=== PATIENT | male | born 1985 | race Caucasian/White ===

== ENCOUNTER 2017-12-23 16:56 | Observation (INO) | payer BC ==
[2017-12-23] MEDS ORDERED: Dextrose 50% SYRINGE Inj (50 ml) ONE (17:05)
[2017-12-23] MEDS ORDERED: Sodium Chloride 0.9% 2,000 ML IV STA (17:55)
--- NOTE | 2017-12-23 17:58 | ED PDOC ---
HPI: General Adult Time Seen by Provider: 12/23/17 17:47 Chief Complaint (Nursing): Weakness/Neurological Deficit Chief Complaint (Provider): Muscle cramps History Per: Patient History/Exam Limitations: no limitations Onset/Duration Of Symptoms: Days (today 12pm) Current Symptoms Are (Timing): Still Present Additional Complaint(s): Pt. with cramps all over. Started 15 min after playing 2 soccer games, 1 hr each today. No chest pain, dyspnea, weakness, headaches, dizziness, abd pain, nausea, vomit, diarrhea. No cough. No numbness, tingles. Also was not wearing sunscreen so his skin but burned all over. Skin is not bothering him, but is red. Has had similar cramps when he was 16, after playing soccer; went away on its own. Past Medical History Reviewed: Nursing Documentation, Vital Signs Vital Signs: Last Vital Signs Temp 98 F 12/23/17 17:44 Pulse 105 H 12/23/17 17:44 Resp 20 12/23/17 17:44 BP 132/89 12/23/17 17:44 Pulse Ox 97 12/23/17 18:01 - Medical History PMH: No Chronic Diseases - Surgical History Surgical History: Back Surgery - Family History Family History: States: Unknown Family Hx - Home Medications Home Medications: Ambulatory Orders Medication Instructions Recorded No Known Home Med 12/23/17 - Allergies Allergies/Adverse Reactions: Allergies Allergy/AdvReac Type Severity Reaction Status Date / Time No Known Allergies Allergy Verified 12/23/17 17:44 Review of Systems ROS Statement: Except As Marked, All Systems Reviewed And Found Negative Constitutional: Positive for: Weakness Musculoskeletal: Positive for: Other (body cramps) Neurological: Positive for: Weakness Physical Exam - Reviewed Nursing Documentation Reviewed: Yes Vital Signs Reviewed: Yes - Physical Exam Appears: Positive for: Uncomfortable Head Exam: Positive for: ATRAUMATIC, NORMAL INSPECTION, NORMOCEPHALIC Skin: Positive for: Warm. Negative for: Normal Color (blanching, unraised erythema that is nontender on arms, legs, back, chest, abd; no fluctuance or induration.) Eye Exam: Positive for: EOMI, Normal appearance, PERRL ENT: Positive for: Normal ENT Inspection. Negative for: Nasal Congestion, Pharyngeal Erythema Neck: Positive for: Painless ROM, Supple Cardiovascular/Chest: Positive for: Regular Rate, Rhythm. Negative for: Tachycardia Respiratory: Positive for: CNT, Normal Breath Sounds Gastrointestinal/Abdominal: Positive for: Soft. Negative for: Tenderness Back: Negative for: L CVA Tenderness, R CVA Tenderness Extremity: Positive for: Normal ROM. Negative for: Tenderness, Pedal Edema, Calf Tenderness Neurologic/Psych: Positive for: Alert, beverage steward II-XII, Oriented. Negative for: Motor/Sensory Deficits, Facial Droop - Laboratory Results Result Diagrams: 12/23/17 18:07 12/23/17 18:07 Interpretation Of Abn Labs: 12.1 wbc, 22 bun. 2.4 cr, phos 5.6, cpk 957 - ECG ECG: Positive for: Interpreted By Me, Viewed By Me ECG Rhythm: Positive for: Normal QRS, Normal ST Segment, Sinus Rhythm O2 Sat by Pulse Oximetry: 97 Pulse Ox Interpretation: Normal - Progress ED Course And Treament: 1830: Stable. Continue hydration. Feeling less cramps. AAOx3. 1951: Spoke with Dr. Rowell. Will admit obs tele. Nephro paged. Feeling better. Will continue hydration. - Critical Care Total Time (In Min): 30 Documented Critical Care: Time excludes all time spent performint seperately billable procedures Disposition - Clinical Impression Clinical Impression: Acute renal insufficiency, Dehydration - Patient ED Disposition Is Patient to be Admitted: Yes Counseled Patient/Family Regarding: Studies Performed, Diagnosis - Disposition Disposition Time: 20:04 Condition: FAIR - Pt Status Changed To: Hospital Disposition Of: Observation - POA Present On Arrival: None
[2017-12-23 18:16] LABS: BASO # 0.1 K/uL (0.0-0.2); BASO % 0.6 % (0.0-2.0); EOS % 0.2 % (0.0-4.0); HEMOGLOBIN 16.5 g/dL (12.0-18.0); LYMPH # 1.6 K/uL (1.0-4.3); LYMPH % 13.5 % (20.0-40.0); MEAN CELL VOLUME 87.8 fl (80.0-94.0); MEAN CORPUSCULAR HEMOGLOBIN 30.6 pg (27.0-31.0); MEAN CORPUSCULAR HGB CONC 34.9 g/dL (33.0-37.0); MEAN PLATELET VOLUME 8.3 fl (7.2-11.7); MONO # 0.9 K/uL (0.0-0.8); MONO % 7.1 % (0.0-10.0); NEUT # 9.5 K/uL (1.8-7.0); NEUT % 78.6 % (50.0-75.0); RBC 5.39 Mil/uL (4.40-5.90); RED CELL DISTRIBUTION WIDTH 13.7 % (11.5-14.5); WHITE BLOOD COUNT 12.1 K/uL (4.8-10.8)
[2017-12-23 18:25] LABS: ALB/GLOB RATIO 1.3 (1.0-2.1); ALBUMIN 5.8 g/dL (3.5-5.0); CALCIUM 11.1 mg/dL (8.4-10.2)
[2017-12-23 18:36] LABS: TROPONIN I 0.039 ng/mL (0.00-0.120)
[2017-12-23] MEDS ORDERED: Sodium Chloride 0.9% 1,000 ML IV SCH (20:45)
[2017-12-23 20:50] LABS: URINE BACTERIA RARE (<OCC); URINE BILIRUBIN NEGATIVE (NEGATIVE); URINE BLOOD NEGATIVE (NEGATIVE); URINE CLARITY CLOUDY (Clear); URINE COLOR YELLOW (YELLOW); URINE GLUCOSE (UA) NEG (Normal); URINE LEUKOCYTE ESTERASE NEG Leu/uL (Negative); URINE PROTEIN NEGATIVE (NEGATIVE); URINE UROBILINOGEN 0.2-1.0 mg/dL (0.2-1.0)
[2017-12-23] MEDS: Sodium Chloride 0.9% 1,000 ML IV SCH (21:11)
[2017-12-23 21:41] LABS: BARBITURATES, UR NEGATIVE (NEGATIVE); BENZODIAZEPINES, UR NEGATIVE (NEGATIVE); OPIATES, UR NEGATIVE (NEGATIVE); PHENCYCLIDINE, UR NEGATIVE (NEGATIVE)
[2017-12-23 22:16] LABS: CREATININE, RANDOM URINE 148.2 mg/dL
[2017-12-24] MEDS: Sodium Chloride 0.9% 1,000 ML IV SCH ×5 (00:18→22:14)
[2017-12-24 00:41] LABS: BLOOD UREA NITROGEN 21 mg/dl (9-20); GFR AFRICAN-AMERICAN > 60; GFR NON-AFRICAN AMERICAN 59
[2017-12-24 06:54] LABS: BLOOD UREA NITROGEN 19 mg/dl (9-20); CALCIUM 8.8 mg/dL (8.4-10.2); GFR AFRICAN-AMERICAN > 60; GFR NON-AFRICAN AMERICAN > 60
--- NOTE | 2017-12-24 08:04 | CARD ---
APPROVED REPORT Date of service: 12/23/2017 EKG Measurement Heart [id number] <Conclusion> Normal sinus rhythm Rightward axis Borderline ECG
[2017-12-24 12:27] LABS: ALB/GLOB RATIO 1.4 (1.0-2.1); BILIRUBIN,DIRECT 0.4 mg/ml (0.0-0.4)
--- NOTE | 2017-12-24 12:30 | RAD ---
Date of service: 12/24/2017 PROCEDURE: CHEST RADIOGRAPH, 1 VIEW HISTORY: r/o CHF COMPARISON: GoNone available. FINDINGS: LUNGS: Clear. PLEURA: No pneumothorax or pleural fluid seen. CARDIOVASCULAR: Normal. OSSEOUS STRUCTURES: No significant abnormalities. VISUALIZED UPPER ABDOMEN: Normal. OTHER FINDINGS: None. IMPRESSION: No active disease.
--- NOTE | 2017-12-24 19:46 | HP ---
Copied To: Haseeb Nagy MD Attending MD: Haseeb Nagy MD CHIEF COMPLAINT: Generalized weakness and muscle cramps. HISTORY OF PRESENT ILLNESS: This is 32-year-old male without significant past medical history, who was playing soccer in heat outside without any sunscreen or without drinking water adequately and started having severe generalized muscular cramps and felt very weak and also had redness all over his body, so the patient was brought to the emergency room where the patient was found to be in acute renal failure with rhabdomyolysis and was admitted for further management. REVIEW OF SYSTEMS: Positive for generalized malaise, weakness, fatigue, tired, generalized body redness, and muscle cramps. Review of systems otherwise is negative for headache, dizziness, syncope, loss of consciousness, chest pain, shortness of breath, nausea, vomiting, diarrhea, and constipation. Review of systems of all other organ system is unremarkable. PAST MEDICAL HISTORY: Unremarkable except the patient had similar episode after playing similar game in similar environment at the age of 16, which had resolved spontaneously and was in milder intensities on current episode. PAST SURGICAL HISTORY: Unremarkable . MEDICATIONS: The patient is no medications at home chronically. ALLERGIES: THE PATIENT IS NOT ALLERGIC TO ANY MEDICATION. FAMILY HISTORY: Noncontributory. PHYSICAL EXAMINATION: GENERAL: Well-built, well-nourished, overweight male and in no acute distress. VITAL SIGNS: Temperature afebrile, pulse 88, respirations 18, and blood pressure 136/76. HEENT: Pupils reacting to light. No nystagmus. Normocephalic, atraumatic skull. NECK: No JVD. No thyromegaly. No lymphadenopathy. HEART: S1 and S2, normal and regular. No significant murmur, gallop, or rub is heard. LUNGS: Shows good bilateral air exchange. No rales or rhonchi. ABDOMEN: Soft and nontender. No organomegaly. No fluid. Bowel sounds are plus and normal. EXTREMITIES: No calf swelling. No tenderness. No acute ischemia. No edema. SKIN: The patient has more on upper extremity, but sort of generalized in exposed area. No open ulcers. DIRECTOR MEDICAID: Exam is essentially unchanged. The patient is alert, awake, and oriented x3. The patient has no sign of any acute gross focal, motor, or sensory neurological deficit. DIAGNOSTIC DATA: Available diagnostic data reviewed. BUN is 22, creatinine is 2.4, and CPK level is more than 1000. Other labs are acceptable. ADMITTING IMPRESSION: Acute renal failure, rhabdomyolysis, sunburn stage I. PLAN: Plan as ordered. Case and plan discussed with the patient. Haseeb Nagy MD
[2017-12-25 06:11] LABS: MEAN CELL VOLUME 89.4 fl (80.0-94.0); MEAN CORPUSCULAR HEMOGLOBIN 30.5 pg (27.0-31.0); MEAN CORPUSCULAR HGB CONC 34.1 g/dL (33.0-37.0); RBC 4.26 Mil/uL (4.40-5.90); RED CELL DISTRIBUTION WIDTH 13.6 % (11.5-14.5); WHITE BLOOD COUNT 4.6 K/uL (4.8-10.8)
[2017-12-25] MEDS: Sodium Chloride 0.9% 1,000 ML IV SCH ×2 (06:42→13:38)
[2017-12-25 07:09] LABS: ALB/GLOB RATIO 1.4 (1.0-2.1); ALBUMIN 3.8 g/dL (3.5-5.0); ALT/SGPT 54 U/L (21-72); AST/SGOT 54 U/L (17-59); BLOOD UREA NITROGEN 13 mg/dl (9-20); GFR AFRICAN-AMERICAN > 60; GFR NON-AFRICAN AMERICAN > 60
--- NOTE | 2017-12-25 08:06 | CON ---
Copied To: Jaron Pelaez MD Attending MD: Jaron Pelaez MD DATE: 12/24/2017 NEPHROLOGY CONSULTATION LOCATION: [facility]. HISTORY OF PRESENT ILLNESS: The patient is a 32-year-old male with no previous past medical history who presents to the ED after experiencing generalized body cramps, found to have acute renal failure for which Nephrology is being consulted. The patient reports playing two full-length soccer game 90 minutes each yesterday prior to developing above-mentioned symptoms. Reports not eating anything in the morning before the game. The patient otherwise reports being in his usual state of health. Denies any nausea, vomiting, or diarrhea. Denies any difficulty breathing. Denies any chest pain or palpitations. No change in urination. Appetite has otherwise been well. PAST MEDICAL HISTORY: As above. SOCIAL HISTORY: Denies smoking. FAMILY HISTORY: No history of kidney disease. REVIEW OF SYSTEMS: CONSTITUTIONAL: Appetite well. No fevers or chills. HEENT: Vision stable. No upper respiratory type illness. RESPIRATORY: No cough. No dyspnea. CARDIOVASCULAR: As per HPI. GASTROINTESTINAL: As per HPI. GENITOURINARY: As per HPI. MUSCULOSKELETAL: As per HPI. Denies taking any medications or pain meds. PSYCHIATRIC: Denies any depression or anxiety. NEUROLOGIC: Denies any dizziness. PHYSICAL EXAMINATION: VITAL SIGNS: This morning, blood pressure 136/77, heart rate 74, respirations 18, temperature 97.4, O2 sat 98% on room air. GENERAL: No distress. Conversing coherently in full sentences. HEENT: Moist mucous membranes. Nonicteric. No cervical lymphadenopathy. RESPIRATORY: Lungs are clear to auscultation bilaterally. No rales, no rhonchi, no wheezes. CARDIOVASCULAR: Heart sounds. S1, S2 normal. No murmurs, gallops, or rub. GASTROINTESTINAL: Abdomen is soft, nontender, nondistended. GENITOURINARY: No bladder distention. EXTREMITIES: No leg edema. SKIN: Warm. No cyanosis. PSYCHIATRIC: Normal mood. Normal affect. NEUROLOGIC: No tremor. LABORATORY DATA: CBC on admission: WBC 12.1, hemoglobin 16.5, hematocrit 47.4, and platelets 314. Chemistry panel this morning: Sodium 137, potassium 4.4, chloride 104, bicarb 24, BUN 19, creatinine 1.2 improved from 2.4 on presentation, glucose 96, calcium 8.8. T-bili 1.5, AST 55, ALT 65, CK 1038, albumin 4 decreased from 5.8 on presentation. Urine studies from yesterday evening: Urine sodium 13, creatinine 148. Urine tox, significant for being positive for cocaine. Chest x-ray this morning: Lungs clear, directly visualized. ASSESSMENT AND PLAN: 1. Acute kidney injury, prerenal etiology in this setting of volume depletion due to strenuous exercise and likely sensible fluid losses. Cannot rule out some component of kidney injury due to vasoconstriction from cocaine use. Renal function otherwise improving on intravenous fluids. a. Continue intravenous fluids with normal saline at 150 mL per hour. b. Avoid nephrotoxic agents (nonsteroidal anti-inflammatory drugs, phosphate enema). c. The patient is counseled on harms of cocaine use. 2. Rhabdomyolysis relatively mild elevation in creatine kinase level. Continue intravenous fluids as above. 3. Volume depletion. The patient with significant hemoconcentration with albumin on presentation being 5.8, improving to 4 today. We will continue intravenous fluids. Thank you for this referral. We will be following up closely. Jaron Pelaez MD
[2017-12-25 08:33] VITALS: RESP 20
--- NOTE | 2017-12-25 08:46 | CP.PCM.DIS ---
Provider - Provider Date of Admission: 12/23/17 20:01 Attending physician: Haseeb Nagy MD Primary care physician: None Consults: Nephrology - Dr. Pelaez Time Spent in preparation of Discharge (in minutes): 30 Diagnosis - Discharge Diagnosis (1) Rhabdomyolysis Status: Acute (2) Acute renal insufficiency Status: Resolved (3) Dehydration Status: Acute Hospital Course - Lab Results Lab Results: Most Recent Lab Values WBC 4.6 K/uL (4.8-10.8) L D 12/25/17 04:20 RBC 4.26 Mil/uL (4.40-5.90) L 12/25/17 04:20 Hgb 13.0 g/dL (12.0-18.0) D 12/25/17 04:20 Hct 38.1 % (35.0-51.0) 12/25/17 04:20 MCV 89.4 fl (80.0-94.0) 12/25/17 04:20 MCH 30.5 pg (27.0-31.0) 12/25/17 04:20 MCHC 34.1 g/dL (33.0-37.0) 12/25/17 04:20 RDW 13.6 % (11.5-14.5) 12/25/17 04:20 Plt Count 194 K/uL (130-400) D 12/25/17 04:20 MPV 8.3 fl (7.2-11.7) 12/23/17 18:07 Neut % (Auto) 78.6 % (50.0-75.0) H 12/23/17 18:07 Lymph % (Auto) 13.5 % (20.0-40.0) L 12/23/17 18:07 [place] % (Auto) 7.1 % (0.0-10.0) 12/23/17 18:07 Eos % (Auto) 0.2 % (0.0-4.0) 12/23/17 18:07 Baso % (Auto) 0.6 % (0.0-2.0) 12/23/17 18:07 Neut # (Auto) 9.5 K/uL (1.8-7.0) H 12/23/17 18:07 Lymph # (Auto) 1.6 K/uL (1.0-4.3) 12/23/17 18:07 [place] # (Auto) 0.9 K/uL (0.0-0.8) H 12/23/17 18:07 Eos # (Auto) 0.0 K/uL (0.0-0.7) 12/23/17 18:07 Baso # (Auto) 0.1 K/uL (0.0-0.2) 12/23/17 18:07 Sodium 140 mmol/l (132-148) 12/25/17 04:20 Potassium 4.2 MMOL/L (3.6-5.0) 12/25/17 04:20 Chloride 106 mmol/L (98-107) 12/25/17 04:20 Carbon Dioxide 27 mmol/L (22-30) 12/25/17 04:20 Anion Gap 11 (10-20) 12/25/17 04:20 BUN 13 mg/dl (9-20) 12/25/17 04:20 Creatinine 1.0 mg/dl (0.8-1.5) 12/25/17 04:20 Est GFR ( Amer) > 60 12/25/17 04:20 Est GFR (Non-Af Amer) > 60 12/25/17 04:20 Random Glucose 91 mg/dL (75-110) 12/25/17 04:20 Serum Osmolality 291 mosm/kg (272-300) 12/23/17 21:04 Lactic Acid 1.5 MMOL/L (0.7-2.1) 12/23/17 21:17 Calcium 9.0 mg/dL (8.4-10.2) 12/25/17 04:20 Phosphorus 3.3 mg/dl (2.5-4.5) 12/25/17 04:20 Magnesium 2.0 MG/DL (1.6-2.3) 12/25/17 04:20 Total Bilirubin 1.1 mg/dl (0.2-1.3) 12/25/17 04:20 Direct Bilirubin 0.4 mg/ml (0.0-0.4) 12/24/17 12:03 AST 54 U/L (17-59) 12/25/17 04:20 ALT 54 U/L (21-72) 12/25/17 04:20 Alkaline Phosphatase 79 U/L (38-126) 12/25/17 04:20 Total Creatine Kinase 567 U/L (55-170) H 12/25/17 04:20 Troponin I 0.0390 ng/mL (0.00-0.120) 12/23/17 18:07 Total Protein 6.5 G/DL (6.3-8.2) 12/25/17 04:20 Albumin 3.8 g/dL (3.5-5.0) 12/25/17 04:20 Globulin 2.7 gm/dL (2.2-3.9) 12/25/17 04:20 Albumin/Globulin Ratio 1.4 (1.0-2.1) 12/25/17 04:20 Urine Color Yellow (YELLOW) 12/23/17 20:40 Urine Clarity Cloudy (Clear) 12/23/17 20:40 Urine pH 6.0 (5.0-8.0) 12/23/17 20:40 Ur Specific [place] 1.010 (1.003-1.030) 12/23/17 20:40 Urine Protein Negative mg/dL (NEGATIVE) 12/23/17 20:40 Urine Glucose (UA) Neg mg/dL (Normal) 12/23/17 20:40 Urine Ketones Negative mg/dL (NEGATIVE) 12/23/17 20:40 Urine Blood Negative (NEGATIVE) 12/23/17 20:40 Urine Nitrate Negative (NEGATIVE) 12/23/17 20:40 Urine Bilirubin Negative (NEGATIVE) 12/23/17 20:40 Urine Urobilinogen 0.2-1.0 mg/dL (0.2-1.0) 12/23/17 20:40 Ur Leukocyte Esterase Neg Liza/uL (Negative) 12/23/17 20:40 Urine RBC (Auto) 1 /hpf (0-3) 12/23/17 20:40 Urine Microscopic WBC 1 /hpf (0-5) 12/23/17 20:40 Urine Bacteria Rare (<OCC) 12/23/17 20:40 Hyaline Casts 6-10 /hpf (0-2) H 12/23/17 20:40 Ur Random Creatinine 148.2 mg/dL 12/23/17 20:33 Ur Random Sodium 13 mmol/L 12/23/17 20:33 Urine Opiates Screen Negative (NEGATIVE) 12/23/17 19:00 Urine Methadone Screen Negative (NEGATIVE) 12/23/17 19:00 Ur Barbiturates Screen Negative (NEGATIVE) 12/23/17 19:00 Ur Phencyclidine Scrn Negative (NEGATIVE) 12/23/17 19:00 Ur Amphetamines Screen Negative (NEGATIVE) 12/23/17 19:00 U Benzodiazepines Scrn Negative (NEGATIVE) 12/23/17 19:00 U Oth Cocaine Metabols Positive (NEGATIVE) H 12/23/17 19:00 U Cannabinoids Screen Negative (NEGATIVE) 12/23/17 19:00 - Hospital Course Hospital Course: 32 yo M with no chronic medical problems was admitted due to acute renal insufficiency secondary to rhabdomyolisis and dehydration. Pt received IV hydration with improvement of BUN/Cr and decrease of CPK. This morning he has no complaints, feels well and wants to go home. He understands that he must stay adequately hydrated with water over the next few days. Since he does not have a PMD in the area, he will follow up with Dr. Nagy in his [place] office on Sunday at noon. Discharge Exam - Head Exam Head Exam: NORMAL INSPECTION - Eye Exam Eye Exam: Normal appearance - ENT Exam ENT Exam: Mucous Membranes Moist - Respiratory Exam Respiratory Exam: Clear to PA & Lateral, NORMAL BREATHING PATTERN - Cardiovascular Exam Cardiovascular Exam: REGULAR RHYTHM, +S1, +S2 - GI/Abdominal Exam GI & Abdominal Exam: Normal Bowel Sounds, Soft - Extremities Exam Extremities exam: normal capillary refill, normal inspection, pedal pulses present - Neurological Exam Neurological exam: Oriented x3 - Psychiatric Exam Psychiatric exam: Normal Mood - Skin Skin Exam: Intact, Warm Additional comments: 1st degree sunburn, diffuse Discharge Plan - Follow Up Plan Condition: FAIR Disposition: HOME/ ROUTINE Instructions: Dehydration (DC), Rhabdomyolysis Additional Instructions: Please continue to drink water throughout the next few days; stay hydrated. Follow up with Dr. Nagy in his office at 12 pm on Sunday12/28/17 for repeat bloodwork. Return to ED if symptoms return, further muscle pain, darkened/red urine. Referrals: Haseeb Nagy MD [Staff Provider] -
[2017-12-25 13:25] VITALS: BP 124/77; PULSE 64; TEMP 98; O2SAT 98
== END 2017-12-25 15:45 | disposition home or self-care (01) ==
LOC: H.ER 16:56 → H.ERHOLD 20:01 → H.TEL 22:06
PROVIDERS: ADMIT Internal Medicine; ATTEND Internal Medicine
DX: M62.82 Rhabdomyolysis (principal); N28.9 Disorder of kidney and ureter, unspecified; L55.0 Sunburn of first degree; F14.90 Cocaine use, unspecified, uncomplicated; Z71.51 Drug abuse counseling and surveillance of drug abuser; E86.0 Dehydration
CPT/HCPCS: 36415; 71045; 80053; 80076; 81003; 82009; 82550; 82570; 83605; 83735; 83930; 84100; 84300; 84484; 84600; 85025; 85027; 93005; 96361; 96374; 99285; G0378; G0480; J1885; J7030